=== PATIENT | male | born 1980 | race Caucasian/White ===

== ENCOUNTER 2020-05-05 15:01 | Emergency (ER) | payer SELFPAY ==
[2020-05-05 15:04] VITALS: BP 135/85; PULSE 95; RESP 16; TEMP 36.9; O2SAT 99; BMI 23.6
[2020-05-05 15:16] VITALS: BP 135/85; PULSE 97; RESP 16; O2SAT 99
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
== END 2020-05-05 15:27 | disposition left against medical advice (07) ==
LOC: ER 15:42
PROVIDERS: Emergency Provider Family Medicine
DX: Z04.1 Encounter for examination and observation following transport accident (principal); V89.2XXA Person injured in unspecified motor-vehicle accident, traffic, initial encounter; F17.210 Nicotine dependence, cigarettes, uncomplicated; Z53.21 Procedure and treatment not carried out due to patient leaving prior to being seen by health care provider
CPT/HCPCS: 12345; 99281

== ENCOUNTER → 2021-04-23 14:54 | Outpatient (BNVA) | payer MEDICAID, SELFPAY | PROVIDERS: Visit Provider Registered Nurse Neonatal Intensive Care | DX: S82.435A Nondisplaced oblique fracture of shaft of left fibula, initial encounter for closed fracture (principal); V49.9XXA Car occupant (driver) (passenger) injured in unspecified traffic accident, initial encounter | CPT/HCPCS: 73610 ==

== ENCOUNTER 2021-11-24 02:49 | Emergency (ER) | payer MEDICAID, SELFPAY ==
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
[2021-11-24 03:04] VITALS: BP 146/82; PULSE 81; RESP 20; TEMP 36.8; O2SAT 98; BMI 25.8
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
[2021-11-24 03:35] VITALS: BP 129/74; PULSE 73; RESP 16; O2SAT 97
--- NOTE | 2021-11-24 10:04 | DCPLANNER ---
Addendum entered by Екатерина Lawton 12/13/21 20:34: Patient had a follow up appointment scheduled for 12.01.21 with ortho - patient did attend appointment. Addendum entered by Екатерина Lawton 11/25/21 06:35: Patient has a follow up appointment scheduled for November at 9:00 with MARK Arizmendi at ortho. Clinic will call patient with appointment information. Original Note: sales manager prearranged funerals had message to schedule a follow up appointment for patient with ortho. sales manager prearranged funerals sent patients information to the front office staff at ortho. Patients information will be printed and reviewed. Clinic will call patient with appointment information.
== END 2021-11-24 04:10 | disposition home or self-care (01) ==
PROVIDERS: Emergency Provider Emergency Medicine
DX: S52.571A Other intraarticular fracture of lower end of right radius, initial encounter for closed fracture (principal); S52.611A Displaced fracture of right ulna styloid process, initial encounter for closed fracture; V86.56XA Driver of dirt bike or motor/cross bike injured in nontraffic accident, initial encounter
CPT/HCPCS: 29125; 73110; 73130; 99283

== ENCOUNTER → 2021-12-01 09:11 | Outpatient (BNVA) | payer MEDICAID, SELFPAY | PROVIDERS: Referring Provider Emergency Medicine; Visit Provider Physician Assistant | DX: S52.571A Other intraarticular fracture of lower end of right radius, initial encounter for closed fracture (principal); S52.601A Unspecified fracture of lower end of right ulna, initial encounter for closed fracture; V86.06XA Driver of dirt bike or motor/cross bike injured in traffic accident, initial encounter | CPT/HCPCS: 25600; 73110; 99203; 99999 ==

== ENCOUNTER 2021-12-01 13:19 | Outpatient (CLI) | payer MEDICAID, SELFPAY | END 2021-12-01 13:20 | disposition home or self-care (01) | LOC: SPT 13:20 | PROVIDERS: Visit Provider Physician Assistant | DX: Z46.89 Encounter for fitting and adjustment of other specified devices (principal); S52.591D Other fractures of lower end of right radius, subsequent encounter for closed fracture with routine healing; S52.691D Other fracture of lower end of right ulna, subsequent encounter for closed fracture with routine healing; X58.XXXD Exposure to other specified factors, subsequent encounter | CPT/HCPCS: 97760; L3982 ==

== ENCOUNTER → 2021-12-15 14:01 | Outpatient (BNVA) | payer MEDICAID, SELFPAY | PROVIDERS: Visit Provider Physician Assistant | DX: S52.501D Unspecified fracture of the lower end of right radius, subsequent encounter for closed fracture with routine healing (principal); S52.601D Unspecified fracture of lower end of right ulna, subsequent encounter for closed fracture with routine healing; V86.0 Driver of special all-terrain or other off-road motor vehicle injured in traffic accident; S52.571D Other intraarticular fracture of lower end of right radius, subsequent encounter for closed fracture with routine healing; S52.611D Displaced fracture of right ulna styloid process, subsequent encounter for closed fracture with routine healing | CPT/HCPCS: 73110; 99024; 99999 ==

== ENCOUNTER → 2022-01-12 12:54 | Outpatient (BNVA) | payer MEDICAID, SELFPAY | PROVIDERS: Visit Provider Physician Assistant | DX: S52.501D Unspecified fracture of the lower end of right radius, subsequent encounter for closed fracture with routine healing (principal); S52.601D Unspecified fracture of lower end of right ulna, subsequent encounter for closed fracture with routine healing | CPT/HCPCS: 73110; 99213 ==

== ENCOUNTER 2022-01-12 14:02 | Outpatient (CLI) | payer MEDICAID, SELFPAY | END 2022-01-12 14:03 | disposition home or self-care (01) | LOC: SPT 14:03 | PROVIDERS: Visit Provider Physician Assistant | DX: Z46.89 Encounter for fitting and adjustment of other specified devices (principal); S52.501D Unspecified fracture of the lower end of right radius, subsequent encounter for closed fracture with routine healing; X58.XXXD Exposure to other specified factors, subsequent encounter | CPT/HCPCS: 97760; L3908 ==

== ENCOUNTER 2025-03-28 19:03 | Emergency (ER) | payer MEDICAID, SELFPAY ==
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
[2025-03-28 19:10] VITALS: BP 105/60; PULSE 70; RESP 18; TEMP 37.1; O2SAT 97; BMI 24.3
--- NOTE | 2025-03-28 19:14 | XRR_ITS ---
PROCEDURE INFORMATION: Exam: XR Left Tibia and Fibula Exam date and time: 03/28/2025 7:34 PM Age: 44 years old Clinical indication: Pain; Lower leg; Left; Additional info: Bilateral lower ext pain after [place]; Lt ankle swelling/pain TECHNIQUE: Imaging protocol: Radiologic exam of the left tibia and fibula. Views: 2 views. COMPARISON: CR XR ankle LT min 3V* [id number] 04/23/2021 3:04 PM FINDINGS: Bones/joints: Mild tricompartmental bony degenerative change. Comminuted intra-articular fracture of the calcaneus, likely at least 3 fragments, extending through the posterior plantar surface and including the immediate subtalar region. Displaced slightly inferiorly relative to talus. Soft tissues: Medial ankle soft tissue swelling. Other findings: Four views obtained. XR/XR tibia fibula LT 2V [id number] IMPRESSION: Comminuted intra-articular fracture of the calcaneus, likely at least 3 fragments, extending through the posterior plantar surface and including the immediate subtalar region. Displaced slightly inferiorly relative to talus.
--- NOTE | 2025-03-28 19:14 | XRR_ITS ---
PROCEDURE INFORMATION: Exam: XR Right Tibia and Fibula Exam date and time: 03/28/2025 7:38 PM Age: 44 years old Clinical indication: Pain; Lower leg; Right; Additional info: Bilateral lower ext pain after [place]; Lt ankle swelling/pain TECHNIQUE: Imaging protocol: Radiologic exam of the right tibia and fibula. Views: 2 views. COMPARISON: No relevant prior studies available. FINDINGS: Bones/joints: Mild tricompartmental bony degenerative change. Questionable nondisplaced calcaneal fracture, consider CT for further characterization. No Soft tissues: Normal. Other findings: Four views. XR/XR tibia fibula RT 2V [id number] IMPRESSION: No definite acute fracture, subluxation, dislocation. Questionable nondisplaced calcaneal fracture, consider CT for further characterization.
--- NOTE | 2025-03-28 19:16 | XRR_ITS ---
PROCEDURE INFORMATION: Exam: XR Left Ankle Exam date and time: 03/28/2025 7:34 PM Age: 44 years old Clinical indication: Pain; Ankle; Left; Additional info: Bilateral lower ext pain after [place]; Lt ankle swelling/pain TECHNIQUE: Imaging protocol: Radiologic exam of the left ankle. Views: 3 or more views. COMPARISON: CR XR ankle LT min 3V* [id number] 04/23/2021 3:04 PM FINDINGS: Bones/joints: Probable old fracture of the distal fibula. Comminuted intra-articular fracture of the calcaneus, likely at least 3 fragments, extending through the posterior plantar surface and including the immediate subtalar region, possibly between middle and posterior talar articular surfaces. Displaced slightly inferiorly relative to talus. Soft tissues: Medial ankle soft tissue swelling. Other findings: Three views. XR/XR ankle LT min 3V* [id number] IMPRESSION: Comminuted intra-articular fracture of the calcaneus, likely at least 3 fragments, extending through the posterior plantar surface and including the immediate subtalar region, possibly between middle and posterior talar articular surfaces. Displaced slightly inferiorly relative to talus.
--- NOTE | 2025-03-28 19:50 | XRR_ITS ---
PROCEDURE INFORMATION: Exam: XR Right Foot Exam date and time: 03/28/2025 7:52 PM Age: 44 years old Clinical indication: Pain; Foot; Right; Additional info: RT heel pain/swelling after blunt truma; PT [place]. TECHNIQUE: Imaging protocol: Radiologic exam of the right foot. Views: 3 or more views. COMPARISON: CR (LOW EXM, ) 03/28/2025 7:38 PM FINDINGS: Bones/joints: Comminuted nondisplaced fracture of the calcaneus. Soft tissues: Normal. Three films. XR/XR foot RT min 3V* [id number] IMPRESSION: Comminuted nondisplaced fracture of the calcaneus.
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
--- NOTE | 2025-03-28 21:15 | PC.NURSE ---
Pt states he a wheelchair at home.
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
[2025-03-28] MEDS: oxyCODONE-APAP 10-325 mg Tablet 1 TAB PO (21:27)
--- NOTE | 2025-03-30 07:50 | DCPLANNER ---
messaged podiatry for er f/u
== END 2025-03-28 21:50 | disposition home or self-care (01) ==
PROVIDERS: Emergency Provider Physician Assistant
DX: S92.014A Nondisplaced fracture of body of right calcaneus, initial encounter for closed fracture (principal); S92.062A Displaced intraarticular fracture of left calcaneus, initial encounter for closed fracture; W17.89XA Other fall from one level to another, initial encounter; Z72.0 Tobacco use
CPT/HCPCS: 29515; 72131; 73590; 73610; 73630; 73700; 96372; 99284; J1885; J9999

== ENCOUNTER 2025-04-13 06:42 | Day surgery (SDC) | payer MEDICAID, SELFPAY ==
[2025-04-13] VITALS (10 sets, daily range): BP systolic 103–123; BP diastolic 52–78; PULSE 68–94; RESP 12–22; TEMP 36.2–36.9; O2SAT 95–100; BMI 24.3
--- NOTE | 2025-04-13 07:41 | W.PM.OPSUD ---
Surgery/Procedure H&P Update DATE OF PROCEDURE: April 13, 2025 DATE H&P PERFORMED: 04/01/25 H&P UPDATE INFORMATION: I have reviewed H&P completed within last 30 days, I have examined patient prior to procedure, No changes to prior documentation, H&P is in [facility] EMR on date indicated and Risks and benefits of the procedure reviewed PREOP DIAGNOSIS: Bilateral calcaneal fracture PLANNED PROCEDURE: Operation Date: 04/13/25 08:20 Proposed Procedures p ORIF Calcaneous Fracture LEFT AND RIGHT(Bilateral) - Zachariah Cedeno DPM s Arthrodesis Subtalar Joint LEFT AND RIGHT(Bilateral) - Zachariah Cedeno DPM
--- NOTE | 2025-04-13 07:54 | P.ANESASSM_ITS ---
Pre-Anesthetic Assessment Height/Weight: Height 5 ft 8 in Weight 160 lb Temp Pulse Resp BP Pulse Ox O2 Del Method 97.6 F 68 18 113/68 98 Room Air 04/13/25 06:56 04/13/25 06:56 04/13/25 06:56 04/13/25 06:56 04/13/25 06:56 04/13/25 07:05 Preop Diagnosis: Bilateral calcaneal fracture Operation Date: 04/13/25 08:20 Proposed Procedures p ORIF Calcaneous Fracture LEFT AND RIGHT(Bilateral) - Zachariah Cedeno DPM s Arthrodesis Subtalar Joint LEFT AND RIGHT(Bilateral) - Zachariah Cedeno DPM Was Beta Emmy taken within 24 hours: N/A Was Clonidine taken within 24 hours: N/A Last intake: Intake Last Liquid Date 04/12/25 Last Liquid Time 20:00 Last Solid Date 04/12/25 Last Solid Time 20:00 Social Tobacco and No alcohol Exam alert, oriented x 3, clear to auscultation bilaterally and regular rate & rhythm Airway Submandibular: within normal limits Cervical ROM: within normal limits Mallampati: Class II Dentition: false Anesthetic Plan ASA status: 2 Anesthesia: General and Regional (specify below) Other: No prior issues with anesthesia NPO since yesterday evening Current smoker, vapes nicotine Denies any cardiac issues No recent illnesses METs greater than 4 Plan for general anesthesia with LMA and post induction bilateral popliteal blocks Medications/Allergies Home Medications ?Medication ?Instructions ?Recorded ?Confirmed ?Last Taken ?Type fast form cock up splint #1 ea 12/01/21 04/06/25 Unkn own Rx cock up splint #1 ea 01/12/22 04/06/25 Unkn own Rx cephalexin 500 mg capsule 500 mg PO TID 7 days #21 cap s 04/01/25 04/09/25 04/12/25 Rx hydrocodone 5 mg-acetaminophen 325 1 tab PO Q6H PRN pa in 4 days #16 04/06/25 04/09/25 04/12/25 Rx mg tablet tabs hydrocodone 10 mg-acetaminophen 1 tab PO Q6H PRN pain #28 tabs 04/13/25 Unknown Rx 325 mg tablet Allergies Allergy/AdvReac Type Severity Reaction Status Date / Time No Known Allergies Allergy Verified 04/06/25 13:13 Current Medications Generic Name Dose Route Start Last Admin Trade Name Yvonne PRN Reason Stop Dose Admin Sodium Chloride 1,000 mls @ 30 mls/hr 04/13/25 07:00 04/13/25 07:10 Sodium Chloride 0.9% IV 04/14/25 06:59 30 mls/hr .Q24H LESTER Administration PFSH Anesthesia Medical History Migratory dental abscess Social History Smoking and tobacco/nicotine status: current every day tobacco/nicotine user Alcohol intake: current Substance/Drug Use: current
[2025-04-13] MEDS: ceFAZolin 2,000 mg SDV 2000 MG IVP (08:10)
--- NOTE | 2025-04-13 08:50 | ANES.PROC ---
Anesthesia Procedures Procedure/Date: 04/13/25 Nerve Block ^: Nerve Block 1: Main Anesthesia: general anesthesia Time Out Performed: Yes Consent: requested by attending/covering physician and from patient Laterality: Left (Bilateral, left and right) Nerve block location: popliteal Anesthesia monitors applied: pulse oximetry, EKG, BP cuff and oxygen Nerve block position: supine Anesthetic Used: ropivicaine 0.5% Amount of anesthesia used (mL): 40 Ultrasound used to: recognize landmarks Nerve Stimulator Used?: Yes Interscalene/Femoral BLK: other needle (pjunk 4inch) Injection: neg aspiration of heme Patient Tolerated Procedure: well Complications: none Additional Comments: decadron 4mg added to block
--- NOTE | 2025-04-13 10:57 | XR_ITS ---
WS: [id number] Calcaneus, C-arm fluoroscopy views, 04/13/2025 Clinical Data: Bilateral open reduction internal fixation calcaneal fractu Comparison: Left ankle, 03/28/2025 Findings: Dr. Cedeno reduced a comminuted fracture of the left calcaneus with orthopedic pins. XR/XR calcaneus LT min 2V [id number] Impression: Internal fixation of left calcaneal fracture.
[2025-04-13] MEDS: ceFAZolin 1,000 mg SDV 2000 MG IVP (11:44)
--- NOTE | 2025-04-13 12:50 | W.PM.BPON ---
Date of procedure: 04/13/2025 Surgeon name: Dr. Zachariah Cedeno D.P.M. Binder Cutter Hand(s) name(s): Anoop Procedure(s) performed: Bilateral open reduction internal fixation calcaneal fracture with bilateral subtalar joint arthrodesis Description of findings: Bilateral calcaneal fracture intra-articular Estimated blood loss: 50 cc Specimen(s) removed: None Post-operative diagnosis: Bilateral calcaneal fracture
--- NOTE | 2025-04-13 14:00 | ANE.PACU2 ---
Inpatient post-anesthesia follow up: Airway intact: Yes Vital signs: Temperature 98.5 F Pulse Rate 80 Respiratory Rate 17 Blood Pressure 116/78 Pulse Oximetry 97 Oxygen Delivery Me thod Room Air Oxygen Flow Rate 8 Fraction of Inspir ed Oxygen Hydration adequate: Yes Nausea and vomiting: No Pain level: 1 Mental status: Baseline
--- NOTE | 2025-04-13 19:30 | P.OP_ITS ---
Operative Report Date of procedure: April 13, 2025 Surgeon: Zachariah Cedeno DPM Procedure: Date of procedure: 04/13/2025 Pre-op diagnosis: Bilateral calcaneal fracture Post-op diagnosis: Same Post-op findings: Bilateral calcaneal fracture Procedure done: 1. ORIF left calcaneal fracture CPT 74301 2. Left subtalar joint arthrodesis CPT 86349 3. ORIF right calcaneal fracture CPT 44684 4. Right subtalar joint arthrodesis CPT 40060 Implants: Lateral wall calcaneal plate x 1 [employer] with corresponding 3.5 locking screws. 5.0 headless compression screw x 2 in each foot. Allosync, DBM [employer] Specimens removed: None Surgeon: Dr. Zachariah Cedeno DPM Circular Shear Operator: Anoop Estimated blood loss: 50 cc Tourniquet time: See intraoperative documentation Complications: None Patient is a 44-year-old male that has a history of bilateral calcaneal fracture. The patient has had the aforementioned chief complaint for some time. Conservative treatment measures have been attempted and the patient has opted for surgical intervention at this time. A lengthy discussion regarding the procedure, including risks and complications has been had with the patient and is noted in the recent clinic note. Written and verbal consent have been obtained. All patient questions have been answered to the patient?s satisfaction. No written or verbal guarantees have been given or implied. The patient has been NPO since midnight. The history has been reviewed and the history and physical is current. The signed consent was confirmed and placed in the patient chart. Patient imaging has been reviewed and is consistent with the diagnosis. Under mild sedation, the patient was brought into the operating room and placed on the table in the supine position. IV antibiotics were given by the anesthesia team as preoperative surgical prophylaxis. General sedation was then performed by the anesthesiateam. A pneumatic tourniquet was then placed about the bilateral thighs. Patient received bilateral popliteal block. The left operative extremity was then prepped and draped in the usual fashion. The extremity was then elevated and exsanguinated before the tourniquet was inflated to 325 mmHg. After inflation, the following procedure was then performed. Attention was directed to the left lateral calcaneus. A 4.5 cm sinus tarsi incision was made using #15 blade. Dissection was carried down through subcutaneous and superficial fascia to the level of the posterior facet of subtalar joint. This was exposed via sharp dissection using a #15 blade. Care was taken to preserve adjacent neurovascular structures as well as peroneal tendons. Upon exposure of the posterior facet there is noted to be significant comminution and depression consistent with calcaneal fracture. Lamina wagon winder was inserted into the lateral wall the calcaneus to restore height. Once height was restored attention was directed to preparation of the posterior facet of the subtalar joint. Cartilage was removed using a combination of osteotome and mallet as well as joint resurfacing tool. Site was irrigated with copious amounts of sterile saline before fenestration was achieved to the plantar aspect of the talus. After preparation for arthrodesis of the subtalar joint the calcaneus was reduced to an acceptable anatomic position before a lateral wall calcaneal plate was positioned to the lateral wall of the calcaneus. Good position of the plate was noted. The plate was drilled and filled with corresponding 3.5 locking screws. Good position of the screws is noted clinically as well as on C-arm imaging. After ORIF was performed, #15 blade was used to make a stab incision on the posterior aspect of the calcaneus. 2 guidewires were driven from the posterior calcaneus across the posterior facet of the subtalar joint. Good alignment of these guidewires was noted. The posterior facet was then packed with Allosync, DBM to facilitate arthrodesis. Two 5.0 headless compression screws were then driven over the wires across the posterior facet subtalar joint for arthrodesis. Good positioning of the screws was noted clinically as well as on C-arm imaging. The site was irrigated with sterile saline before attention was directed to closure. All incisions of the left foot were closed using 2-0 Vicryl for deep tissue 3-0 Vicryl for subcuticular closure and 3-0 nylon for skin closure. At this point the tourniquet was let down and good hyperemic response was noted to all digits of the left foot. Dressing consisting of Xeroform, 4 4 gauze, Kerlix, Sergey was applied to the left lower extremity. The drape was removed and the patient underwent redraped and reprep to proceed with the right side. After reprep and drape of the right side the right lower extremity was exsanguinated before the tourniquet was inflated to 325 mmHg. The following procedure was then performed Attention was directed to the right lateral calcaneus where a 4.5 cm sinus tarsi incision was made using #15 blade. Dissection was carried down through subcutaneous the superficial fascia to the level of the posterior facet of subtalar joint. This was exposed via sharp dissection using a #15 blade. Care was taken to preserve adjacent neurovascular structures as well as peroneal tendons. Upon exposure of the posterior facet there was noted to be significant comminution and depression consistent with calcaneal fracture. Once again, lamina wagon winder was inserted into the lateral wall the calcaneus to restore the height of the calcaneus. Combination of osteotome mallet, joint resurfacing tool was used to remove articular cartilage from the posterior facet of the subtalar joint preparation for arthrodesis. Site was then fenestrated. After fenestration the site was packed with DBM in preparation for arthrodesis. Steinmann pin was inserted into the posterior aspect the calcaneus. Under direct visualization using fluoroscopy the calcaneal body was reduced to an acceptable anatomic position. Guidewires were then driven across the posterior facet to maintain position of the calcaneus. The wires were overdrilled in preparation for a 5.0 headless compression screw. The for screw was inserted over the guidewire across the posterior facet of subtalar joint to maintain position of the open reduction internal fixation. Good positioning of the screw was noted. Reduction was noted to be maintained. Second wire was then drilled in preparation for the arthrodesis screw. A second 5.0 headless compression screws inserted over the wire across the posterior facet of subtalar joint to provide compression and for arthrodesis. Good position of both screws was noted clinically as well as on C-arm imaging. The incision was then irrigated with copious amounts sterile saline. After irrigation deep tissue was closed with 2- 0 Vicryl followed by subcuticular closure with 3-0 Vicryl and skin closure with 3-0 nylon in horizontal mattress fashion. The posterior right heel was closed using skin carmel. All incisions were then dressed with Xeroform, 4 x 4 gauze, Kerlix, Sergey. Tourniquet was let down to good hyperemic response was noted to all digits of the right foot. Patient was placed in bilateral lower extremity posterior splints. The patient tolerated the procedure and anesthesia well and without complication. The patient was transported from the operating room to the recovery room with vital signs stable and vascular status intact to all digits of bilateral feet.. The patient was given both written and verbal instructions to remain strict nonweightbearing to the lower extremities, to keep dressings/splint clean, dry and intact and to take pain medication as directed. The patient will follow-up in the outpatient setting at their scheduled appointment. The patient was discharged with my personal number and was instructed to call if any questions or issues should arise. They were discharged home once anesthesia criteria was met.
== END 2025-04-13 14:00 | disposition home or self-care (01) ==
PROVIDERS: Visit Provider Podiatrist Foot & Ankle Surgery
PROC: (CPT 28415; principal; 2025-04-13 08:10)
PROC: (CPT 28725; 2025-04-13 08:10)
DX: S92.002A Unspecified fracture of left calcaneus, initial encounter for closed fracture (principal); S92.001A Unspecified fracture of right calcaneus, initial encounter for closed fracture; X58.XXXA Exposure to other specified factors, initial encounter; F17.290 Nicotine dependence, other tobacco product, uncomplicated
CPT/HCPCS: 28725; 28415; 51702; 73650; 76000; C1713; C1762; C9359; J0690; J1100; J1171; J2250; J2405; J2704; J3010; J7030; J9999

== ENCOUNTER → 2025-04-27 15:06 | Outpatient (BNVA) | payer MEDICAID, SELFPAY | PROVIDERS: Visit Provider Podiatrist Foot & Ankle Surgery | DX: S92.014A Nondisplaced fracture of body of right calcaneus, initial encounter for closed fracture (principal); S92.001A Unspecified fracture of right calcaneus, initial encounter for closed fracture; X58.XXXA Exposure to other specified factors, initial encounter | CPT/HCPCS: 73650 ==

== ENCOUNTER → 2025-05-12 14:51 | Outpatient (BNVA) | payer MEDICAID, SELFPAY | PROVIDERS: Visit Provider Podiatrist Foot & Ankle Surgery | DX: S92.002A Unspecified fracture of left calcaneus, initial encounter for closed fracture (principal); S92.001A Unspecified fracture of right calcaneus, initial encounter for closed fracture; X58.XXXA Exposure to other specified factors, initial encounter | CPT/HCPCS: 73650 ==

== ENCOUNTER → 2025-05-26 14:37 | Outpatient (BNVA) | payer MEDICAID, SELFPAY | PROVIDERS: Visit Provider Podiatrist Foot & Ankle Surgery | DX: S92.002A Unspecified fracture of left calcaneus, initial encounter for closed fracture (principal); S92.001A Unspecified fracture of right calcaneus, initial encounter for closed fracture; X58.XXXA Exposure to other specified factors, initial encounter | CPT/HCPCS: 73650 ==

== ENCOUNTER → 2025-06-09 14:40 | Outpatient (BNVA) | payer MEDICAID, SELFPAY | PROVIDERS: Visit Provider Podiatrist Foot & Ankle Surgery | DX: S92.002A Unspecified fracture of left calcaneus, initial encounter for closed fracture (principal); S92.001A Unspecified fracture of right calcaneus, initial encounter for closed fracture; X58.XXXA Exposure to other specified factors, initial encounter | CPT/HCPCS: 73650 ==

== ENCOUNTER → 2025-07-06 12:40 | Outpatient (BNVA) | payer MEDICAID, SELFPAY | PROVIDERS: Visit Provider Podiatrist Foot & Ankle Surgery | DX: S92.062A Displaced intraarticular fracture of left calcaneus, initial encounter for closed fracture (principal); S92.014A Nondisplaced fracture of body of right calcaneus, initial encounter for closed fracture; X58.XXXA Exposure to other specified factors, initial encounter | CPT/HCPCS: 73650 ==